=== PATIENT | female | born 1975 | race Caucasian/White ===

== ENCOUNTER → 2017-08-08 13:36 | Outpatient (CLI) | payer OTHER ==
[~2017-08-08 13:36] MED LIST: B-100 COMPLEX100 MG; CRIXIVAN400 MG PO; GILTUSS TR TAB1 EACH PO; LAMIVUDINE150 MG PO; LEVAQUIN500 MG PO; PROVENTIL3 ML/2.5 M IH; Prednisone PO; Proventil 0.083% 2.5MG/3ML AMPUL.NEB. IH; SEPTRA DS PO; Singulair 10MG PO; TUSSI-PRES B LIQ5 ML PO; Tessalon 200MG PO; ZIDOVUDINE100 MG PO; ZITHROMAX500 MG PO; ZYRTEC10 MG PO
== END | disposition home or self-care (01) ==
LOC: PPHC 13:36
DX: M25.562 Pain in left knee (principal); M54.2 Cervicalgia

== ENCOUNTER 2017-08-11 09:10 | Outpatient (CLI) | payer OTHER | END 2017-08-11 09:21 | disposition home or self-care (01) | LOC: LAB 09:10 | DX: Z00.00 Encounter for general adult medical examination without abnormal findings (principal) ==

== ENCOUNTER 2017-08-11 09:16 | Outpatient (CLI) | payer OTHER | END 2017-08-11 09:21 | disposition home or self-care (01) | LOC: RAD 09:16 | DX: M25.562 Pain in left knee (principal); M54.2 Cervicalgia ==

== ENCOUNTER → 2017-08-11 | Outpatient (CLI) | payer OTHER | END | disposition home or self-care (01) | LOC: MAMO-SONO 10:01 | DX: Z12.31 Encounter for screening mammogram for malignant neoplasm of breast (principal) ==

== ENCOUNTER → 2017-08-22 | Outpatient (CLI) | payer OTHER ==
[~2017-08-22] VITALS: Ht 152.4 cm; Wt 89.8 kg
== END | disposition home or self-care (01) ==
LOC: PPHC 14:14
DX: M25.562 Pain in left knee (principal); R10.13 Epigastric pain; D50.8 Other iron deficiency anemias; Z01.89 Encounter for other specified special examinations

== ENCOUNTER → 2017-10-05 | Outpatient (CLI) | payer OTHER ==
[~2017-10-05] MED LIST changes: +IRON 100 PLUS1 EACH
== END | disposition home or self-care (01) ==
LOC: MRI 13:30
DX: M25.562 Pain in left knee (principal)
CPT/HCPCS: 73721

== ENCOUNTER → 2017-10-19 | Outpatient (CLI) | payer OTHER | END | disposition home or self-care (01) | LOC: PPHC 13:48 | DX: Z01.89 Encounter for other specified special examinations (principal) ==

== ENCOUNTER → 2018-05-19 07:30 | Outpatient (CLI) | payer OTHER | END | disposition home or self-care (01) | LOC: LAB 07:30 | DX: R03.0 Elevated blood-pressure reading, without diagnosis of hypertension (principal); R73.03 Prediabetes; E66.01 Morbid (severe) obesity due to excess calories; Z12.11 Encounter for screening for malignant neoplasm of colon; E55.9 Vitamin D deficiency, unspecified; D64.89 Other specified anemias; M79.671 Pain in right foot ==

== ENCOUNTER 2018-08-26 08:23 | Outpatient (CLI) | payer OTHER | END 2018-08-26 08:30 | disposition home or self-care (01) | LOC: LAB 08:23 | DX: R73.03 Prediabetes (principal) ==

== ENCOUNTER 2019-04-03 06:33 | Outpatient (CLI) | payer OTHER | END 2019-04-03 06:38 | disposition home or self-care (01) | LOC: LAB 06:33 → CERTIFICAD 06:33 | DX: E03.8 Other specified hypothyroidism (principal); R73.09 Other abnormal glucose; Z00.00 Encounter for general adult medical examination without abnormal findings; Z11.1 Encounter for screening for respiratory tuberculosis ==

== ENCOUNTER 2019-04-03 08:09 | Outpatient (CLI) | payer OTHER | END 2019-04-03 08:11 | disposition home or self-care (01) | LOC: MAMO-SONO 08:09 | DX: Z12.31 Encounter for screening mammogram for malignant neoplasm of breast (principal) ==

== ENCOUNTER 2020-03-26 11:47 | Outpatient (CLI) | payer OTHER | END 2020-03-26 14:21 | disposition home or self-care (01) | LOC: CERTIFICAD 11:47 | PROVIDERS: ATTEND General Practice | DX: R05 Cough (principal) ==

== ENCOUNTER 2020-06-07 11:53 | Outpatient (CLI) | payer OTHER | END 2020-06-07 15:00 | disposition home or self-care (01) | LOC: LAB 11:53 | PROVIDERS: ATTEND Internal Medicine Cardiovascular Disease | DX: J44.9 Chronic obstructive pulmonary disease, unspecified (principal); E03.8 Other specified hypothyroidism; I10 Essential (primary) hypertension; E11.9 Type 2 diabetes mellitus without complications; E78.2 Mixed hyperlipidemia; Z12.11 Encounter for screening for malignant neoplasm of colon; E55.9 Vitamin D deficiency, unspecified; N80.8 Other endometriosis; D64.89 Other specified anemias; M12.89 Other specific arthropathies, not elsewhere classified, multiple sites; M46.47 Discitis, unspecified, lumbosacral region ==

== ENCOUNTER → 2020-06-11 | Outpatient (CLI) | payer OTHER | END | disposition home or self-care (01) | LOC: MAMO-SONO 09:57 | PROVIDERS: ATTEND Internal Medicine Cardiovascular Disease | DX: D24.1 Benign neoplasm of right breast (principal); D24.2 Benign neoplasm of left breast; Z12.31 Encounter for screening mammogram for malignant neoplasm of breast; E04.2 Nontoxic multinodular goiter ==

== ENCOUNTER → 2020-06-12 | Outpatient (CLI) | payer OTHER | END | disposition home or self-care (01) | LOC: NUCLEAR 09:30 | PROVIDERS: ATTEND Internal Medicine Cardiovascular Disease | DX: I10 Essential (primary) hypertension (principal) ==

== ENCOUNTER 2020-07-17 18:36 | Outpatient (CLI) | payer OTHER | END 2020-07-17 23:00 | disposition home or self-care (01) | LOC: PPH VACUNA 18:36 | DX: Z23 Encounter for immunization (principal) ==

== ENCOUNTER 2020-09-27 10:41 | Outpatient (CLI) | payer OTHER | END 2020-09-27 15:00 | disposition home or self-care (01) | LOC: LAB 10:41 | PROVIDERS: ATTEND Internal Medicine Cardiovascular Disease | DX: I10 Essential (primary) hypertension (principal); E11.9 Type 2 diabetes mellitus without complications; E03.8 Other specified hypothyroidism; E78.2 Mixed hyperlipidemia ==

== ENCOUNTER 2021-01-08 11:43 | Emergency (ER) | payer OTHER ==
[~2021-01-08] VITALS: Ht 157.5 cm; Wt 89.8 kg
[2021-01-08] MEDS ORDERED: LOSARTAN POTASS50 MG PO (15:52)
[2021-01-08] MEDS ORDERED: TENCON 50-3251 EACH PO (15:52)
== END 2021-01-08 16:08 | disposition home or self-care (01) ==
LOC: ER 11:43
DX: G44.209 Tension-type headache, unspecified, not intractable (principal); I10 Essential (primary) hypertension

== ENCOUNTER → 2021-02-07 07:56 | Outpatient (CLI) | payer OTHER ==
[~2021-02-07 07:56] MED LIST changes: +LOSARTAN POTASS50 MG PO; +TENCON 50-3251 EACH PO
== END | disposition home or self-care (01) ==
LOC: LAB 07:56
PROVIDERS: ATTEND Internal Medicine Cardiovascular Disease
DX: I10 Essential (primary) hypertension (principal); E11.9 Type 2 diabetes mellitus without complications; E03.8 Other specified hypothyroidism; E78.2 Mixed hyperlipidemia; E55.9 Vitamin D deficiency, unspecified

== ENCOUNTER 2021-03-11 08:45 | Outpatient (CLI) | payer OTHER | END 2021-03-11 08:50 | disposition home or self-care (01) | LOC: LAB 08:45 | PROVIDERS: ATTEND Internal Medicine Cardiovascular Disease | DX: M46.47 Discitis, unspecified, lumbosacral region (principal); D53.8 Other specified nutritional anemias ==

== ENCOUNTER 2021-04-28 09:33 | Outpatient (CLI) | payer OTHER | END 2021-04-28 10:33 | disposition home or self-care (01) | LOC: PPH VACUNA 09:33 | PROVIDERS: ATTEND Emergency Medicine Pediatric Emergency Medicine | DX: Z23 Encounter for immunization (principal) ==

== ENCOUNTER 2021-08-14 07:17 | Outpatient (CLI) | payer OTHER | END 2021-08-14 16:09 | disposition home or self-care (01) | LOC: LAB 07:17 | PROVIDERS: ATTEND Internal Medicine Cardiovascular Disease | DX: I10 Essential (primary) hypertension (principal); E11.9 Type 2 diabetes mellitus without complications; E03.8 Other specified hypothyroidism; E78.2 Mixed hyperlipidemia; E55.9 Vitamin D deficiency, unspecified ==

== ENCOUNTER 2021-08-31 06:32 | Outpatient (CLI) | payer OTHER | END 2021-08-31 06:33 | disposition home or self-care (01) | LOC: LAB 06:32 | PROVIDERS: ATTEND Internal Medicine Hematology & Oncology | DX: D50.0 Iron deficiency anemia secondary to blood loss (chronic) (principal); D51.0 Vitamin B12 deficiency anemia due to intrinsic factor deficiency; D51.1 Vitamin B12 deficiency anemia due to selective vitamin B12 malabsorption with proteinuria; E06.3 Autoimmune thyroiditis; J45.21 Mild intermittent asthma with (acute) exacerbation; I10 Essential (primary) hypertension ==

== ENCOUNTER 2021-09-03 07:41 | Outpatient (CLI) | payer OTHER | END 2021-09-03 07:46 | disposition home or self-care (01) | LOC: MAMO-SONO 07:41 | PROVIDERS: ATTEND Internal Medicine Hematology & Oncology | DX: N63.10 Unspecified lump in the right breast, unspecified quadrant (principal); Z12.31 Encounter for screening mammogram for malignant neoplasm of breast; D50.0 Iron deficiency anemia secondary to blood loss (chronic); D51.1 Vitamin B12 deficiency anemia due to selective vitamin B12 malabsorption with proteinuria; E06.3 Autoimmune thyroiditis; J45.21 Mild intermittent asthma with (acute) exacerbation; I10 Essential (primary) hypertension; N93.8 Other specified abnormal uterine and vaginal bleeding ==

== ENCOUNTER 2021-09-26 09:06 | Outpatient (CLI) | payer OTHER | END 2021-09-26 09:08 | disposition home or self-care (01) | LOC: LAB 09:06 | PROVIDERS: ATTEND Obstetrics & Gynecology | DX: E03.9 Hypothyroidism, unspecified (principal); Z00.00 Encounter for general adult medical examination without abnormal findings; I10 Essential (primary) hypertension; E78.00 Pure hypercholesterolemia, unspecified; N39.0 Urinary tract infection, site not specified; Z11.4 Encounter for screening for human immunodeficiency virus [HIV]; Z12.11 Encounter for screening for malignant neoplasm of colon; E55.9 Vitamin D deficiency, unspecified; Z21 Asymptomatic human immunodeficiency virus [HIV] infection status; R79.9 Abnormal finding of blood chemistry, unspecified; R79.89 Other specified abnormal findings of blood chemistry ==

== ENCOUNTER 2021-12-05 08:20 | Outpatient (CLI) | payer OTHER | END 2021-12-05 08:21 | disposition home or self-care (01) | LOC: LAB 08:20 | PROVIDERS: ATTEND Internal Medicine Cardiovascular Disease | DX: E03.9 Hypothyroidism, unspecified (principal); I10 Essential (primary) hypertension; E11.9 Type 2 diabetes mellitus without complications; E78.2 Mixed hyperlipidemia; E55.9 Vitamin D deficiency, unspecified; B20 Human immunodeficiency virus [HIV] disease; K72.00 Acute and subacute hepatic failure without coma ==

== ENCOUNTER 2022-01-13 15:32 | Outpatient (CLI) | payer OTHER | END 2022-01-13 15:41 | disposition home or self-care (01) | LOC: SONOGRAMA 15:32 | PROVIDERS: ATTEND Internal Medicine Cardiovascular Disease | DX: N80.9 Endometriosis, unspecified (principal) ==

== ENCOUNTER 2022-01-27 12:39 | Inpatient (IN) | payer OTHER ==
[~2022-01-27] VITALS: Ht 157.5 cm; Wt 89.8 kg
== END 2022-01-29 13:49 | disposition home or self-care (01) | DRG 179 ==
LOC: ER 12:39 → MEDJ 20:00
PROVIDERS: ADMIT Internal Medicine; ATTEND Internal Medicine
PROC: BW24ZZZ Computerized Tomography (CT Scan) of Chest and Abdomen (ICD-10-PCS; 2022-01-27)
PROC: 4A12X4Z Monitoring of Cardiac Electrical Activity, External Approach (ICD-10-PCS; 2022-01-27)
PROC: 30233N1 Transfusion of Nonautologous Red Blood Cells into Peripheral Vein, Percutaneous Approach (ICD-10-PCS; principal; 2022-01-28)
DX: U07.1 COVID-19 (principal); D64.9 Anemia, unspecified; D50.0 Iron deficiency anemia secondary to blood loss (chronic); N93.8 Other specified abnormal uterine and vaginal bleeding; I10 Essential (primary) hypertension

== ENCOUNTER 2022-02-05 16:57 | Emergency (ER) | payer OTHER ==
[~2022-02-05] VITALS: Ht 157.5 cm; Wt 87.5 kg
[2022-02-05] MEDS ORDERED: PROAIR RESPICL90 MCG IH (17:46)
[2022-02-05] MEDS ORDERED: TUSNEL LIQUID178 ML PO (22:12)
[2022-02-05] MEDS ORDERED: MEDROLPACK PO (22:12)
[2022-02-05] MEDS ORDERED: XOPENEX0.63 MG/3 IH (22:12)
[2022-02-05] MEDS ORDERED: ZITHROMAX500 MG PO (22:12)
== END 2022-02-05 22:15 | disposition home or self-care (01) ==
LOC: ER 16:57
DX: U07.1 COVID-19 (principal); J40 Bronchitis, not specified as acute or chronic; I10 Essential (primary) hypertension

== ENCOUNTER 2022-02-20 08:10 | Outpatient (CLI) | payer OTHER ==
[~2022-02-20 08:10] MED LIST changes: +MEDROLPACK PO; +PROAIR RESPICL90 MCG IH; +TUSNEL LIQUID178 ML PO; +XOPENEX0.63 MG/3 IH
== END 2022-02-20 08:14 | disposition home or self-care (01) ==
LOC: LAB 08:10
PROVIDERS: ATTEND Internal Medicine
DX: D50.8 Other iron deficiency anemias (principal)

== ENCOUNTER 2022-04-12 08:51 | Outpatient (CLI) | payer OTHER | END 2022-04-12 08:52 | disposition home or self-care (01) | LOC: LAB 08:51 | PROVIDERS: ATTEND Internal Medicine Hematology & Oncology | DX: D50.8 Other iron deficiency anemias (principal); D51.1 Vitamin B12 deficiency anemia due to selective vitamin B12 malabsorption with proteinuria; R79.9 Abnormal finding of blood chemistry, unspecified; I10 Essential (primary) hypertension; R74.02 Elevation of levels of lactic acid dehydrogenase [LDH]; K76.89 Other specified diseases of liver; D51.0 Vitamin B12 deficiency anemia due to intrinsic factor deficiency; J45.21 Mild intermittent asthma with (acute) exacerbation ==

== ENCOUNTER 2022-04-12 10:15 | Outpatient (CLI) | payer OTHER | END 2022-04-12 10:19 | disposition home or self-care (01) | LOC: SONOGRAMA 10:15 | PROVIDERS: ATTEND Internal Medicine Hematology & Oncology | DX: D20.0 Benign neoplasm of soft tissue of retroperitoneum (principal); D51.0 Vitamin B12 deficiency anemia due to intrinsic factor deficiency; D51.1 Vitamin B12 deficiency anemia due to selective vitamin B12 malabsorption with proteinuria; E06.3 Autoimmune thyroiditis; J45.21 Mild intermittent asthma with (acute) exacerbation; I10 Essential (primary) hypertension ==

== ENCOUNTER 2022-07-03 07:57 | Outpatient (CLI) | payer OTHER | END 2022-07-03 07:58 | disposition home or self-care (01) | LOC: LAB 07:57 | PROVIDERS: ATTEND Internal Medicine Hematology & Oncology | DX: D50.8 Other iron deficiency anemias (principal); I10 Essential (primary) hypertension; D51.3 Other dietary vitamin B12 deficiency anemia; E03.8 Other specified hypothyroidism; E78.2 Mixed hyperlipidemia; E11.9 Type 2 diabetes mellitus without complications ==

== ENCOUNTER → 2022-11-27 15:14 | Outpatient (CLI) | payer OTHER | END | disposition home or self-care (01) | LOC: LAB 15:09 | PROVIDERS: ATTEND Internal Medicine Hematology & Oncology | DX: D50.8 Other iron deficiency anemias (principal); R79.9 Abnormal finding of blood chemistry, unspecified; I10 Essential (primary) hypertension; R74.02 Elevation of levels of lactic acid dehydrogenase [LDH]; K76.89 Other specified diseases of liver; E03.8 Other specified hypothyroidism; C56.9 Malignant neoplasm of unspecified ovary; R97.8 Other abnormal tumor markers; R97.1 Elevated cancer antigen 125 [CA 125]; R97.0 Elevated carcinoembryonic antigen [CEA]; D50.0 Iron deficiency anemia secondary to blood loss (chronic); D51.1 Vitamin B12 deficiency anemia due to selective vitamin B12 malabsorption with proteinuria; E06.3 Autoimmune thyroiditis; J45.21 Mild intermittent asthma with (acute) exacerbation ==

== ENCOUNTER 2023-04-20 10:21 | Emergency (ER) | payer OTHER ==
[~2023-04-20] VITALS: Ht 157.5 cm; Wt 89.8 kg
[2023-04-20] MEDS ORDERED: DICLOFENAC SODI75 MG PO (12:13)
== END 2023-04-20 12:17 | disposition home or self-care (01) ==
LOC: ER 10:22
DX: M12.562 Traumatic arthropathy, left knee (principal); W22.03XA Walked into furniture, initial encounter; Y93.9 Activity, unspecified; Y92.230 Patient room in hospital as the place of occurrence of the external cause; Y99.9 Unspecified external cause status

== ENCOUNTER → 2023-08-10 07:27 | Outpatient (CLI) | payer OTHER ==
[~2023-08-10 07:27] MED LIST changes: +DICLOFENAC SODI75 MG PO
[2023-08-10 08:06] LABS: PH,URINE 6.5 (5.0-8.0); URINE APPEARANCE Clear; URINE BILIRRUBIN Negative (NEGATIVE); URINE BLOOD Small; URINE COLOR Yellow; URINE GLUCOSE Negative (NEGATIVE); URINE LEUKOCYTE Negative; URINE NITRATE Negative; URINE PROTEIN Trace (NEGATIVE); URINE UROBILINOGEN 0.2 E.U./dl
[2023-08-10 08:08] LABS: HEMATOCRIT 30.7 % (36.0-45.00); MEAN CELL VOLUME 77.8 fL (80.00-100.00); MEAN CORPUSCULAR HGB CONC 32.4 g/dl (32.0-36.0); PLATELET COUNT 244 K/uL (150-450); RED BLOOD COUNT 3.94 M/uL (4.00-6.00); RED CELL DISTRIBUTION WIDTH 15.4 % (11.5-14.5)
[2023-08-10 08:09] LABS: HEMOGLOBIN 9.9 g/dL (12.0-15.00); MEAN CORPUSCULAR HEMOGLOBIN 25.1 pg (27.00-32.0)
[2023-08-10 08:10] LABS: URINE BACTERIA 119.6 uL (0.0-1933); URINE EPITHELIAL CELLS 31.6 uL (0.0-38.8); URINE RBC 33.9 uL (0.0-20.8); URINE WBC 19.1 uL (0.0-23.2)
[2023-08-10 08:57] LABS: ALBUMIN 3.5 gm/dL (3.4-5.0); BILIRUBIN TOTAL 0.44 mg/dL (0.3-1.2); CALCIUM 8.7 mg/dL (8.5-10.1); CHOL HDL RATIO 2.9 (0-5.0); CREATININE SERUM 0.62 mg/dL (0.55-1.02); GFR 101.89; GLOBULINA 3.5 G/DL (2.4-3.5); POTASSIUM 4.12 mEq/L (3.5-5.1); TSH 1.47 uIU/mL (0.358-3.74)
== END | disposition home or self-care (01) ==
LOC: LAB 07:27
DX: I10 Essential (primary) hypertension (principal); D64.9 Anemia, unspecified; E11.00 Type 2 diabetes mellitus with hyperosmolarity without nonketotic hyperglycemic-hyperosmolar coma (NKHHC)

== ENCOUNTER 2023-10-04 08:38 | Emergency (ER) | payer OTHER ==
[~2023-10-04] VITALS: Ht 157.5 cm; Wt 85.3 kg
[2023-10-04] MEDS ORDERED: ELVITEG/COB/EMTRI/TENOFO DISOP 1 UDTAB TABLET PO ONE (09:15)
== END 2023-10-04 09:35 | disposition home or self-care (01) ==
LOC: ER 08:38
DX: S61.442A Puncture wound with foreign body of left hand, initial encounter (principal); L76.11 Accidental puncture and laceration of skin and subcutaneous tissue during a dermatologic procedure; Y93.89 Activity, other specified; Y92.230 Patient room in hospital as the place of occurrence of the external cause

== ENCOUNTER 2024-03-28 13:09 | Outpatient (CLI) | payer OTHER | END 2024-03-28 13:17 | disposition home or self-care (01) | LOC: LAB 13:09 | PROVIDERS: ATTEND Internal Medicine Geriatric Medicine | DX: I11.9 Hypertensive heart disease without heart failure (principal); B19.20 Unspecified viral hepatitis C without hepatic coma; Z11.8 Encounter for screening for other infectious and parasitic diseases; Z11.3 Encounter for screening for infections with a predominantly sexual mode of transmission ==

== ENCOUNTER → 2024-04-25 | Outpatient (CLI) | payer OTHER | END | disposition home or self-care (01) | LOC: MAMO-SONO 12:49 | PROVIDERS: ATTEND Obstetrics & Gynecology | DX: N64.51 Induration of breast (principal) ==

== ENCOUNTER 2024-05-25 09:00 | Outpatient (CLI) | payer OTHER ==
[2024-05-25 09:36] LABS: HEMATOCRIT 28.4 % (36.0-45.00); HEMOGLOBIN 9.2 g/dL (12.0-15.00); MEAN CELL VOLUME 71.3 fL (80.00-100.00); MEAN CORPUSCULAR HEMOGLOBIN 23.1 pg (27.00-32.0); MEAN CORPUSCULAR HGB CONC 32.4 g/dl (32.0-36.0); PLATELET COUNT 262 K/uL (150-450); RED BLOOD COUNT 3.99 M/uL (4.00-6.00); RED CELL DISTRIBUTION WIDTH 16.4 % (11.5-14.5)
[2024-05-25 10:38] LABS: ALBUMIN 3.8 gm/dL (3.4-5.0); BILIRUBIN TOTAL 0.46 mg/dL (0.3-1.2); CALCIUM 8.7 mg/dL (8.5-10.1); CHOL HDL RATIO 2.6 (0-5.0); CREATININE SERUM 0.59 mg/dL (0.55-1.02); FREE TRIODOTIRONINE 2.98 pg/ml (2.18-3.98); GFR 107.46; GLOBULINA 3.6 G/DL (2.4-3.5); POTASSIUM 4.13 mEq/L (3.5-5.1); T4 FREE 0.95 NG/ML (0.76-1.46); TOTAL PROTEIN 7.4 gm/dL (6.4-8.2); TSH 1.96 uIU/mL (0.358-3.74)
== END 2024-05-25 15:27 | disposition home or self-care (01) ==
LOC: LAB 09:00
PROVIDERS: ATTEND Internal Medicine
DX: E03.9 Hypothyroidism, unspecified (principal); E55.9 Vitamin D deficiency, unspecified; Z12.11 Encounter for screening for malignant neoplasm of colon; E78.9 Disorder of lipoprotein metabolism, unspecified; R73.9 Hyperglycemia, unspecified

== ENCOUNTER 2024-06-18 11:20 | Outpatient (CLI) | payer OTHER ==
[2024-06-18 11:48] LABS: HEMATOCRIT 27.1 % (36.0-45.00); MEAN CELL VOLUME 69.8 fL (80.00-100.00); MEAN CORPUSCULAR HEMOGLOBIN 22.9 pg (27.00-32.0); MEAN CORPUSCULAR HGB CONC 32.9 g/dl (32.0-36.0); PLATELET COUNT 225 K/uL (150-450); RED BLOOD COUNT 3.88 M/uL (4.00-6.00); RED CELL DISTRIBUTION WIDTH 17.1 % (11.5-14.5)
[2024-06-18 11:49] LABS: HEMOGLOBIN 8.9 g/dL (12.0-15.00)
== END 2024-06-18 11:21 | disposition home or self-care (01) ==
LOC: LAB 11:20
PROVIDERS: ATTEND Emergency Medicine
DX: D68.9 Coagulation defect, unspecified (principal)

== ENCOUNTER 2024-07-07 17:31 | Emergency (ER) | payer OTHER ==
[~2024-07-07] VITALS: Ht 157.5 cm; Wt 89.8 kg
[2024-07-07] MEDS ORDERED: BENZONATATE 100 MG CAPSULE PO ONE (19:15)
[2024-07-07 20:15] LABS: HEMOGLOBIN 9.5 g/dL (12.0-15.00); MEAN CELL VOLUME 70.6 fL (80.00-100.00); MEAN CORPUSCULAR HEMOGLOBIN 22.3 pg (27.00-32.0); MEAN CORPUSCULAR HGB CONC 31.6 g/dl (32.0-36.0); PLATELET COUNT 233 K/uL (150-450); RED BLOOD COUNT 4.25 M/uL (4.00-6.00); RED CELL DISTRIBUTION WIDTH 16.9 % (11.5-14.5)
== END 2024-07-07 20:57 | disposition home or self-care (01) ==
LOC: ER 17:33
PROVIDERS: General Practice
DX: U07.1 COVID-19 (principal); I10 Essential (primary) hypertension

== ENCOUNTER 2024-10-31 06:03 | Outpatient (CLI) | payer OTHER ==
[2024-10-31 07:25] LABS: HEMOGLOBIN 10.5 g/dL (12.0-15.00); MEAN CELL VOLUME 74.6 fL (80.00-100.00); MEAN CORPUSCULAR HEMOGLOBIN 24.6 pg (27.00-32.0); MEAN CORPUSCULAR HGB CONC 32.9 g/dl (32.0-36.0); PLATELET COUNT 240 K/uL (150-450); RED BLOOD COUNT 4.29 M/uL (4.00-6.00); RED CELL DISTRIBUTION WIDTH 18.2 % (11.5-14.5)
[2024-10-31 07:36] LABS: ERYTHROCYTE SEDIMENTATION RATE 40 mm/hr
[2024-10-31 07:55] LABS: URINE APPEARANCE Clear; URINE BACTERIA 41.6 uL (0.0-1933); URINE BILIRRUBIN Negative (NEGATIVE); URINE BLOOD Small; URINE COLOR Yellow; URINE EPITHELIAL CELLS 7.4 uL (0.0-38.8); URINE GLUCOSE Negative (NEGATIVE); URINE KETONE Negative (NEGATIVE); URINE LEUKOCYTE Moderate; URINE NITRATE Negative; URINE PROTEIN Negative (NEGATIVE); URINE RBC 15.7 uL (0.0-20.8); URINE UROBILINOGEN 0.2 E.U./dl; URINE WBC 444.7 uL (0.0-23.2)
[2024-10-31 08:31] LABS: ALBUMIN 3.8 gm/dL (3.4-5.0); ALKALINE PHOSPHATASE 148 U/L (50-136); ALT/SGPT 65 U/L (12-78); ANION GAP 1 (10.0-20.0); AST/SGOT 42 U/L (15-37); BILIRUBIN TOTAL 0.52 mg/dL (0.3-1.2); BLOOD UREA NITROGEN 10 mg/dL (7-18); BUN CREA RATIO 17 (7.0-25.0); CALCIUM 8.9 mg/dL (8.5-10.1); CARBON DIOXIDE 32 mEq/L (21-32); CHLORIDE 106 mmol/L (98-107); CHOL HDL RATIO 2.3 (0-5.0); CHOLESTEROL 172 mg/dL (0-200); CREATININE SERUM 0.58 mg/dL (0.55-1.02); GLOBULINA 3.7 G/DL (2.4-3.5); GLUCOSE FASTING 117 mg/dL (65-100); HDL 75 mg/dl (40-60); LDL 86 mg/dl (0-130); OSMOLALITY SERUM 270 MOSM/KG (275-295); POTASSIUM 4.17 mEq/L (3.5-5.1); SODIUM 135 mmol/L (136-145); TOTAL PROTEIN 7.5 gm/dL (6.4-8.2); TRIGLYCERIDES 56 mg/dL (0-150); VLDL 11 (0-39)
[2024-10-31 08:34] LABS: C-REACTIVE PROTEIN < 0.29 MG/DL (0.00-0.29)
== END 2024-10-31 06:31 | disposition home or self-care (01) ==
LOC: LAB 06:03
PROVIDERS: ATTEND Internal Medicine
DX: E11.9 Type 2 diabetes mellitus without complications (principal); E55.9 Vitamin D deficiency, unspecified; I11.9 Hypertensive heart disease without heart failure; Z13.220 Encounter for screening for lipoid disorders; D64.9 Anemia, unspecified; Z13.29 Encounter for screening for other suspected endocrine disorder

== ENCOUNTER 2025-01-02 08:20 | Outpatient (CLI) | payer OTHER ==
[2025-01-02 13:46] LABS: BASO % 0.5 % (0.1-1.2); EOS % 1.6 % (0.7-7.0); HEMATOCRIT 32.7 % (34.1-44.9); HEMOGLOBIN 10.6 g/dL (11.2-15.7); LYMPH # 2.11 (1.18-3.74); LYMPH % 34.1 % (19.3-53.1); MEAN CORPUSCULAR HEMOGLOBIN 25.5 pg (25.6-32.2); MONO # 0.74 (0.24-0.82); NEUT % 51.6 % (34.0-71.1); PLATELET COUNT 232 K/uL (163-369); RED BLOOD COUNT 4.15 M/uL (3.93-5.22); RED CELL DISTRIBUTION WIDTH 16.1 % (11.6-14.4)
== END 2025-01-02 08:21 | disposition home or self-care (01) ==
LOC: LAB 08:20 → NUCLEAR 08:20
PROVIDERS: ATTEND Internal Medicine Hematology & Oncology
DX: E11.9 Type 2 diabetes mellitus without complications (principal); D50.0 Iron deficiency anemia secondary to blood loss (chronic); D51.0 Vitamin B12 deficiency anemia due to intrinsic factor deficiency; D51.1 Vitamin B12 deficiency anemia due to selective vitamin B12 malabsorption with proteinuria; E06.3 Autoimmune thyroiditis; J45.21 Mild intermittent asthma with (acute) exacerbation; I10 Essential (primary) hypertension; D50.9 Iron deficiency anemia, unspecified

== ENCOUNTER 2025-01-02 10:28 | Outpatient (CLI) | payer OTHER | END 2025-01-02 10:34 | disposition home or self-care (01) | LOC: NUCLEAR 10:28 | PROVIDERS: ATTEND Internal Medicine | DX: I11.9 Hypertensive heart disease without heart failure (principal) ==

== ENCOUNTER 2025-03-12 09:44 | Outpatient (CLI) | payer OTHER ==
[2025-03-14 05:07] LABS: HEPATITIS A ANTIBODY IGG Negative (Negative); HEPATITIS B SURFACE ANTIBODY Reactive (.); HEPATITIS C VIRUS ANTIBODY Non Reactive (Non Reactive)
== END 2025-03-12 12:47 | disposition home or self-care (01) ==
LOC: LAB 09:44
DX: A64 Unspecified sexually transmitted disease (principal); B19.9 Unspecified viral hepatitis without hepatic coma

== ENCOUNTER 2025-03-30 11:12 | Outpatient (CLI) | payer OTHER ==
[2025-03-30 11:49] LABS: BASO % 0.4 % (0.1-1.2); EOS # 0.13 (0.04-0.54); EOS % 2.6 % (0.7-7.0); LYMPH # 1.86 (1.18-3.74); LYMPH % 37.8 % (19.3-53.1); MEAN PLATELET VOLUME 10.40 fl (9.4-12.4); MONO # 0.66 (0.24-0.82); NEUT # 2.24 (1.56-6.13); NEUT % 45.6 % (34.0-71.1); RED CELL DISTRIBUTION WIDTH 13.7 % (11.6-14.4)
[2025-03-30 11:58] LABS: URINE APPEARANCE Clear; URINE BILIRRUBIN Negative (NEGATIVE); URINE BLOOD Small; URINE COLOR Yellow; URINE GLUCOSE Negative (NEGATIVE); URINE KETONE Negative (NEGATIVE); URINE LEUKOCYTE Trace; URINE NITRATE Negative; URINE PROTEIN Negative (NEGATIVE); URINE UROBILINOGEN 0.2 E.U./dl
[2025-03-30 12:02] LABS: URINE BACTERIA 1187.9 uL (0.0-1933); URINE EPITHELIAL CELLS 39.2 uL (0.0-38.8); URINE RBC 24.0 uL (0.0-20.8); URINE WBC 33.8 uL (0.0-23.2)
[2025-03-30 12:13] LABS: URINE CAST 0.14 uL (0.0-1.40)
[2025-03-30 12:31] LABS: MONO % 13.4 % (4.7-12.5)
[2025-03-30 12:33] LABS: ERYTHROCYTE SEDIMENTATION RATE 32 mm/hr (0-30)
[2025-03-30 13:11] LABS: % SATURACION 9.50 % (15-50); ALT/SGPT 33 U/L (12-78); AST/SGOT 19 U/L (15-37); BILIRUBIN TOTAL 0.52 mg/dL (0.3-1.2); BUN CREA RATIO 22 (7.0-25.0); CHOL HDL RATIO 2.6 (0-5.0); CREATININE SERUM 0.58 mg/dL (0.55-1.02); FE 43.0 ug/dl (50-170); GFR 109.60; GLOBULINA 3.6 G/DL (2.4-3.5); GLUCOSE FASTING 84 mg/dL (65-100); HDL 66 mg/dl (40-60); LDH 233 U/L (84-246); LDL 84 mg/dl (0-130); OSMOLALITY SERUM 281 MOSM/KG (275-295); TSH 2.030 uIU/mL (0.358-3.74); VLDL 20 (0-39)
[2025-03-31 11:42] LABS: FOLIC ACID 16.18 ng/ml (4.78-20); VITAMIN D3 25 HYDROXY 30.2 ng/ml (30-120)
== END 2025-03-30 12:53 | disposition home or self-care (01) ==
LOC: LAB 11:12
PROVIDERS: ATTEND Internal Medicine Hematology & Oncology
DX: D50.0 Iron deficiency anemia secondary to blood loss (chronic) (principal); D51.0 Vitamin B12 deficiency anemia due to intrinsic factor deficiency; D51.1 Vitamin B12 deficiency anemia due to selective vitamin B12 malabsorption with proteinuria; E06.3 Autoimmune thyroiditis; J45.21 Mild intermittent asthma with (acute) exacerbation; I10 Essential (primary) hypertension; D50.8 Other iron deficiency anemias; R79.9 Abnormal finding of blood chemistry, unspecified; R74.02 Elevation of levels of lactic acid dehydrogenase [LDH]; K76.89 Other specified diseases of liver; C56.9 Malignant neoplasm of unspecified ovary; R97.0 Elevated carcinoembryonic antigen [CEA]; E11.9 Type 2 diabetes mellitus without complications; E55.9 Vitamin D deficiency, unspecified; Z13.220 Encounter for screening for lipoid disorders; I11.9 Hypertensive heart disease without heart failure; D64.9 Anemia, unspecified; Z13.29 Encounter for screening for other suspected endocrine disorder

== ENCOUNTER 2025-07-09 09:54 | Outpatient (CLI) | payer OTHER ==
[2025-07-09 10:16] LABS: BASO % 0.7 % (0.1-1.2); EOS # 0.12 (0.04-0.54); EOS % 2.0 % (0.7-7.0); LYMPH # 1.85 (1.18-3.74); LYMPH % 30.7 % (19.3-53.1); MEAN PLATELET VOLUME 10.10 fl (9.4-12.4); MONO # 0.78 (0.24-0.82); NEUT # 3.22 (1.56-6.13); NEUT % 53.4 % (34.0-71.1); RED CELL DISTRIBUTION WIDTH 16.3 % (11.6-14.4)
[2025-07-09 10:17] LABS: URINE APPEARANCE Clear; URINE BILIRRUBIN Negative (NEGATIVE); URINE BLOOD Moderate; URINE COLOR Yellow; URINE GLUCOSE Negative (NEGATIVE); URINE KETONE Negative (NEGATIVE); URINE LEUKOCYTE Negative; URINE NITRATE Negative; URINE PROTEIN Negative (NEGATIVE); URINE UROBILINOGEN 0.2 E.U./dl
[2025-07-09 10:18] LABS: MONO % 13.0 % (4.7-12.5)
[2025-07-09 10:19] LABS: URINE EPITHELIAL CELLS 36.4 uL (0.0-38.8); URINE RBC 16.2 uL (0.0-20.8); URINE WBC 37.2 uL (0.0-23.2)
[2025-07-09 10:22] LABS: ERYTHROCYTE SEDIMENTATION RATE 22 mm/hr (0-30)
[2025-07-09 10:28] LABS: URINE CAST 0.14 uL (0.0-1.40)
[2025-07-09 11:26] LABS: ALT/SGPT 35.0 U/L (12-78); AST/SGOT 16.0 U/L (15-37); BILIRUBIN TOTAL 0.5 mg/dL (0.3-1.2); BUN CREA RATIO 19.0 (7.0-25.0); CHOL HDL RATIO 2.3 (0-5.0); CREATININE SERUM 0.58 mg/dL (0.55-1.02); GFR 109.17; GLOBULINA 3.9 G/DL (2.4-3.5); GLUCOSE FASTING 111.0 mg/dL (65-100); HDL 73.0 mg/dl (40-60); LDL 72.0 mg/dl (0-130); OSMOLALITY SERUM 279.0 MOSM/KG (275-295); TSH 2.35 uIU/mL (0.358-3.74); VLDL 22.0 (0-39)
[2025-07-10 08:02] LABS: ob NEGATIVE (NEGATIVE)
== END 2025-07-09 10:53 | disposition home or self-care (01) ==
LOC: LAB 09:54
PROVIDERS: ATTEND Internal Medicine
DX: E11.9 Type 2 diabetes mellitus without complications (principal); E55.9 Vitamin D deficiency, unspecified; I11.9 Hypertensive heart disease without heart failure; Z13.220 Encounter for screening for lipoid disorders; D64.9 Anemia, unspecified; Z13.29 Encounter for screening for other suspected endocrine disorder